=== PATIENT | male | born 1995 | race Caucasian/White ===

== ENCOUNTER 2025-02-02 19:37 | Emergency (ER) | payer BC ==
[~2025-02-02] VITALS: Ht 177.8 cm; Wt 91.6 kg
[2025-02-02 19:40] VITALS: BP 138/87
[2025-02-02] MEDS ORDERED: KETOROLAC TROMETHAMINE 30 MG INJ ONE (20:21)
[2025-02-02 20:26] LABS: PLATELET COUNT (AUTO) 286 K/uL (152-348); RED BLOOD CELL COUNT(AUTO) 5.01 MIL/uL (4.06-5.63); RED CELL DISTRIBUTION WIDTH 12.5 % (12.1-16.2); WHITE BLOOD COUNT (AUTO) 6.5 K/uL (3.6-10.2)
[2025-02-02] MEDS: KETOROLAC TROMETHAMINE 30 MG INJ IVP ONE (20:29)
[2025-02-02 20:33] LABS: CREATININE 1.1 mg/dL (0.6-1.3); SODIUM SERUM 141.0 mmol/L (136-145); UREA NITROGEN, BLOOD 24.0 mg/dL (7-18)
[2025-02-02 20:38] LABS: ASPARTATE AMINOTRANSFERASE 8.0 U/L (15-37); TOTAL PROTEIN, SERUM 7.7 g/dL (6.4-8.2)
[2025-02-02 20:43] LABS: ETHANOL < 3 MG/DL (0-10)
[2025-02-02] MEDS ORDERED: SWABABLE VALVE TRANSFER SET EA MC ONE (21:22)
[2025-02-02] MEDS ORDERED: IOHEXOL 300MG/ML 100 ML INFUS..BTL ONE (21:22)
[2025-02-02] MEDS ORDERED: IV NORMAL SALINE 250 ML IV ONE (21:22)
[2025-02-02 21:37] LABS: *BILIRUBIN,URIN NEGATIVE (NEGATIVE); *BLOOD, URINE NEGATIVE (NEGATIVE); *CLARITY,URINE CLEAR (CLEAR); *COLOR,URINE YELLOW (YELLOW); *KETONES,URINE TRACE (NEGATIVE); *PROTEIN,URINE NEGATIVE (NEGATIVE); *UROBILINOGEN,URINE 0.2 E.U./dl (NORMAL); LEUKOCYTE ESTERASE ,URINE NEGATIVE (NEGATIVE); NITRITE, URINE NEGATIVE (NEGATIVE); UGLUCOSE NEGATIVE (NEGATIVE)
[2025-02-02 21:51] LABS: SQUAMOUS EPITHELIAL CELL,UR MODERATE /HPF (NONE SEEN)
[2025-02-02 21:52] LABS: *AMPHETAMINE, URINE NEGATIVE (NEGATIVE); *BARBITURATE, URINE NEGATIVE (NEGATIVE); *BENZODIAZEPINE, URINE NEGATIVE (NEGATIVE); *CANNABINOID, URINE NEGATIVE (NEGATIVE); *COCCAINE, URINE NEGATIVE (NEGATIVE); *OPIATE, URINE NEGATIVE (NEGATIVE); *PHENCYCLIDINE SCREEN,URINE NEGATIVE (NEGATIVE); FENTANYL, URINE NEGATIVE (NEGATIVE); URINE AMORPHOUS URATE FEW /HPF
[2025-02-02] MEDS: IV NS 1000 ML 1,000 ML IV ONE (22:05)
[2025-02-02] MEDS ORDERED: PANT20TA2 PO (22:49)
[2025-02-02 23:19] VITALS: BP 130/85; O2SAT 99
== END 2025-02-02 23:00 | disposition home or self-care (01) ==
LOC: ER 19:47
DX: R10.84 Generalized abdominal pain (principal); R11.0 Nausea; Z79.899 Other long term (current) drug therapy; Z88.7 Allergy status to serum and vaccine
CPT/HCPCS: 80053; 83690; 81001; 85025; 36415; 74177; 99285; 96374; 80320; 80307; J1885; Q9967; A4606; A4663; G0480; J7040